=== PATIENT | male | born 1990 | race Caucasian/White ===

== ENCOUNTER 2020-03-17 22:55 | Emergency (ER) | payer SELFPAY ==
[~2020-03-17] VITALS: Ht 188 cm; Wt 96.9 kg
[~2020-03-17 22:55] MED LIST: CYAN100063 PO; LEVE500T53 PO; LEVE750T37 PO; MAGN100T6 PO; NAPR250T6 PO
[2020-03-17 23:03] VITALS: BP 156/112
--- NOTE | 2020-03-17 23:26 | NUR ---
PT IN GOWN IN [facility]. PT VERBALIZES UNDERSTANDING OF POC. ALL QUESTIONS ANSWERED.
[2020-03-17] MEDS ORDERED: LIDOCAINE 2%, 20ML SQ ONE (23:30)
[2020-03-17] MEDS ORDERED: LIDOCAINE-MPF 2% ,5ML ONE (23:35)
[2020-03-18] MEDS ORDERED: NEOSPORIN OINT. PKT 1 PACKET ONE (00:53)
--- NOTE | 2020-03-18 01:23 | NUR ---
PT D/C WITH D/C SUMMARY AND SCRIPTS. ALL QUESTIONS ANSWERED. PT AMBULATES TO REGISTRATION DESK WITH STEADY GAIT FOR D/C HOME. PT DENIES ANY OTHER NEEDS PERTAINING TO THIS VISIT.
== END 2020-03-18 01:25 | disposition home or self-care (01) ==
LOC: ED 23:45
DX: S51.021A Laceration with foreign body of right elbow, initial encounter (principal); G40.909 Epilepsy, unspecified, not intractable, without status epilepticus; W01.0XXA Fall on same level from slipping, tripping and stumbling without subsequent striking against object, initial encounter; Y93.89 Activity, other specified; Y92.009 Unspecified place in unspecified non-institutional (private) residence as the place of occurrence of the external cause; Y99.8 Other external cause status
CPT/HCPCS: 12032; 99284